=== PATIENT | male | born 1935 | race Caucasian/White ===

== ENCOUNTER 2018-12-13 15:45 | Inpatient (IN) | payer OTHER ==
[~2018-12-13] VITALS: Ht 172.7 cm; Wt 88.0 kg
[2018-12-13 15:50] VITALS: Ht 172.7 cm; Wt 88.0 kg
--- NOTE | 2018-12-13 16:36 | NUR ---
SON BRINGS IN FATHER VIA W/C FOR GENERALIZED WEAKNESS FOR TWO DAYS, DECREASED APPETITE AND UNABLE TO EAT OR DRINK BECAUSE HE HICCUPS AFTERWARDS. PT AAOX3, IN NAD, OTHER THAN FEELING "WEAK" RESP EVEN AND UNLABORED,ON RA@98%, DENIES CP, ONLY MILD SOB WITH MILD EXERTION. STATES HE STARTED STEROIDS GIVEN TO HIM AT [facility] 6 DAYS AGO. STATES AFTER TAKING THAT MEDICATION, HE STARTED FEELING WEAK. ABD LARGE, NON DISTENDED, DENIES ANY N/V/D. NO FEVERS OR CHILLS, DENIES DYSURIA. SKIN W/D/I, HEPLOCK TO RT AC #20, WAIITNG FOR ER MD GARCIA.
[2018-12-13 16:56] LABS: PLATELET COUNT 198 x10^3mcL (130-400); RED CELL DISTRIBUTION WIDTH 14.4 % (11.5-14.5)
[2018-12-13 17:08] LABS: SEGMENTED NEUTROPHILS 95 % (37-75)
[2018-12-13 17:09] LABS: BAND NEUTROPHIL 1 % (0-10); BASOPHIL 0 % (0-2)
[2018-12-13 17:10] LABS: rbc morphology (normal/abnorm) NORMAL (NORMAL)
[2018-12-13 17:12] LABS: ALBUMIN 3.5 g/dL (3.4-5.0); ALKALINE PHOSPHATASE 70 U/L (46-116); ALT/SGPT 38 U/L (16-63); AST/SGOT 22 U/L (15-37); BILIRUBIN TOTAL 2.35 mg/dL (0.20-1.00); CALCIUM 9.7 mg/dL (8.5-10.1); CARBON DIOXIDE 16.6 mmol/L (21-32); CHLORIDE SERUM 90 mmol/L (98-107); CREATININE SERUM 3.4 mg/dL (0.7-1.3); SODIUM SERUM 125 mmol/L (136-145)
[2018-12-13 17:16] LABS: T3 TOTAL 0.7 ng/mL
[2018-12-13 17:28] LABS: FREE T4 1.33 ng/dL (0.76-1.46); FREE THYROXINE INDEX 2.4 ug/dL (1.4-4.5); T4(THYROXINE) 6.3 ug/dL (4.7-13.3)
--- NOTE | 2018-12-13 17:55 | NUR ---
PT WITH EYES CLOSED AT THIS TIME, IN NAD. SON AT BEDSIDE. AWAIITNG FURTHER DISPO. VSS, BLOOD CULTURES RECENTLY TAKEN, WBC HIGH. PT INFORMED WE STILL NEED URINE COLLECTION.
--- NOTE | 2018-12-13 18:31 | NUR ---
URINE COLLECTED AND DIP DONE.
--- NOTE | 2018-12-13 18:55 | NUR ---
PT BACK FROM CT SCAN, NO CHANGE IN CONDITION. VSS, ON RA@96%, ATRIL FLUTTER ON MONITOR, DR VELAZQUEZ AWARE. NO FURTEHR ORDERS PENDING.
[2018-12-13 19:20] LABS: POTASSIUM SERUM 6.6 mmol/L (3.5-5.1)
[2018-12-13 19:21] LABS: GLUCOSE SERUM 628 mg/dL (74-106)
--- NOTE | 2018-12-13 19:39 | NUR ---
PER MD SING DO NOT GIVE CALCIUM CHLORIDE BECAUSE PT MAY BE IN DKA. WAITING NEW UPDATED ORDERS FOR EMAR
--- NOTE | 2018-12-13 19:50 | NUR ---
PT BIB DAUGHTER FOR C/O GENERALIZED WEAKNESS. PT IS AXO X4. PT SPEAKING IN CLEAR AND FULL SENTENCES. PT HAS DRY SKIN, BUT INTACT. PT IS TACHYCARDIC ON THE MONITOR IN . MD KAREY BRAR. PT HAS HX OF GOUT, HTN, AND UNKNOWN "IRREGULAR HEART BEAT" THAT HE STATES IS THE REASON HE TAKES DIGOXIN AND XARELTO. PT ALSO HAVING SEGMENTS OF AFIB WHEN HR SLOWS DOWN. PT DENIES ANY PAIN AT THIS TIME. PT COOPERATIVE. PT STATES THAT HE RECENTLY STARTED TAKING A STEROID 5 DAYS AGO FOR AN UNKNOWN INFECTION. PT HAS NO HX OF DIABETES. PT STATES THAT SINCE HE STARTED TAKING THE STEROID HE STARTS TO HICCUP AFTER HE EATS. NAD AT THIS TIME. FAMILY AT BEDSIDE. LUNG SOUNDS CLEAR. PT CONNECTED TO FULL CM.
--- NOTE | 2018-12-13 19:59 | NUR ---
PER MD EDEN. DUE TO DECREASING BP HE STATES VERBAL ORDERS TO RUN THE REST OF THE MAINTENANCE FLUID A BOLUS WIDE OPEN.
--- NOTE | 2018-12-13 20:00 | NUR ---
MD EDEN MADE AWARE OF PT HR OF ABOVE 140. MD EDEN STATES GIVE THE BOLUS AND UPDATE HIM ON PT BP AND HR AFTER BOLUS FOR POTENTIAL DOSE OF CARDIZEM
[2018-12-13] MEDS ORDERED: MYLIIL PO (20:21)
[2018-12-13] MEDS ORDERED: MELOXICAM15 M1 PO (20:22)
[2018-12-13] MEDS ORDERED: TAMSULOSIN HCL0.4 MG PO (20:22)
[2018-12-13] MEDS ORDERED: XARELTO10 M1 PO (20:23)
[2018-12-13] MEDS ORDERED: DIG125 PO (20:24)
[2018-12-13] MEDS ORDERED: ALLOPURINOL100 MG PO (20:24)
[2018-12-13] MEDS ORDERED: HCTZ/LISINOPRIL1 TA1 PO (20:24)
[2018-12-13] MEDS ORDERED: PREDNISOLONE SO10 MG PO (20:25)
--- NOTE | 2018-12-13 20:37 | NUR ---
JOSE A SANDS AT BEDSIDE FOR REPEAT EKG PER DR EDEN.
--- NOTE | 2018-12-13 21:20 | NUR ---
SPOKE WITH AFTER HOURS PHARMACIST AND HE STATES THEY WILL BRING OVER VANCOMYCIN BECAUSE WE DO NOT HAVE ANY IN THE [facility]
--- NOTE | 2018-12-13 22:00 | NUR ---
REPORT GIVEN TO KENYON JAMES
--- NOTE | 2018-12-13 22:02 | NUR ---
KENYON JAMES UPDATED THAT PT LAST BLOOD GLUCOSE WAS 501 AND LACTIC ACID WENT UP TO 6.7 THAT HE NEEDS TREATMETN FOR WELL HIS HR HAS DECREASED AND IS STILL TACHYCARDIC HOWEVER IT IS NOW AFIB. PT TRANSFERRED TO ICU BED 5. KENYON JAMES THERE TO RESUME CARE OF PT. FAMILY WENT WITH PT. NAD UPON TRANSFER TO ICU.
[2018-12-13 22:15] LABS: microscopic required? YES; urine erythrocyte TRACE (NEGATIVE)
--- NOTE | 2018-12-13 22:20 | NUR ---
RECEIVED CALL FROM DR. MEHTA FOR PATIENT'S STATUS. ALL QUESTIONS AND CONCERNS ANSWERED. DR ORDERED 5 UNITS IV PUSH FOR HIGH BS AND HIGH POTASSIUM, WELL A STAT CHEM 7. WILL PUT IN ORDERS AND CARRY OUT.
--- NOTE | 2018-12-13 22:45 | NUR ---
RECEIVED CALL FROM DR. COOPER FOR PATIENT STATUS. ALL QUESTIONS AND CONCERNS ANSWERED. ORDERED NS TO BE CHANGED FROM 250 TO 150 ML/HR, ZOSYNM 2.25 G Q8HRS, VANCO [facility]ARM[facility] DOSE, AND BMP AND LACTIC ACIC Q6HRS X4 DAYS. IN ADDITION, ORDERED Q6 HR BLOOD SUGAR CHECKS, AND SLIDING SCALE INSULIN. WILL PUT IN ORDERS, AND CARRY OUT.
--- NOTE | 2018-12-13 22:50 | NUR ---
RECEIVED PT FROM ER. PT CONNECTED TO PCTS. PT ALERT AND ORIENTED X4. PUPILS REACTIVE TO LIGHT. PT IS BREATHING E/U ON RA. LUNG SOUNDS CLEAR TO BILATERAL UPPER LOBES, DIMINSHED TO BILATERAL LOWER LOBES. S1 S2 HEART SOUNDS AUSCULTATED WITH SINUS TACHYCARDIA. PULSES MODERATE X4. CAP REFILL <3 SECONDS X34. SKIN IS WARM AND CONSISTENT WITH ETHNICITY. PERIPHERAL IV TO LEFT FA AND RIGHT AC PATENT, DRESSING CDI. NS INFUSING AT 250 ML/HR. NO EDEMA NOTED. ABD IS SOFT AND ROUNDED WITH ACTIVE BOWEL SOUNDS X4Q. GENERALIZED WEAKNESS. MENEZES DRAINING VIA GRAVITY, WITH FAIR OUPUT. WILL CONTINUE TO MONITOR.
[2018-12-13 23:49] LABS: CALCIUM 9.1 mg/dL (8.5-10.1); CARBON DIOXIDE 21.3 mmol/L (21-32); CHLORIDE SERUM 101 mmol/L (98-107); CREATININE SERUM 2.6 mg/dL (0.7-1.3); SODIUM SERUM 135 mmol/L (136-145)
[2018-12-13 23:52] LABS: GLUCOSE SERUM 556 mg/dL (74-106)
[2018-12-14] VITALS (7 sets, daily range): BP systolic 103–125; BP diastolic 57–75
--- NOTE | 2018-12-14 00:15 | NUR ---
CALLED DR VELÁSQUEZ FOR HR IN THE 200'S. DR ASKED IF PT WAS IN A FIB BUT APPEARS TO BE SINUS TACHY, WELL SHOWN ON EKG. ORDERED CARDIZEM 20 MG IVP Q2HRS PRN FOR HR > 140. ALSO ORDERED DIGOXIN 0.25 MG IVP X1. DIGOXIN PO DAILY 0.125 MG. AND XARALTO QHS 20 MG. WILL PUT IN ORDERS AND CARRY OUT.
[2018-12-14 03:47] LABS: PLATELET COUNT 179 x10^3mcL (130-400); RED CELL DISTRIBUTION WIDTH 14.2 % (11.5-14.5)
[2018-12-14 03:57] LABS: MONOCYTE 7 % (0-7); SEGMENTED NEUTROPHILS 88 % (37-75)
[2018-12-14 03:59] LABS: PLATELET MORPHOLOGY PLATELETS NORMAL; rbc morphology (normal/abnorm) NORMAL (NORMAL)
[2018-12-14 04:18] LABS: CHOLESTEROL/HDL RATIO 3.4
[2018-12-14 04:21] LABS: CALCIUM 9.6 mg/dL (8.5-10.1); CARBON DIOXIDE 22.6 mmol/L (21-32); CHLORIDE SERUM 109 mmol/L (98-107); CREATININE SERUM 2.5 mg/dL (0.7-1.3); GLUCOSE SERUM 128 mg/dL (74-106); MAGNESIUM 2.9 mg/dL (1.8-2.4); PHOSPHOROUS 3.5 mg/dL (2.5-4.9); POTASSIUM SERUM 4.8 mmol/L (3.5-5.1); SODIUM SERUM 144 mmol/L (136-145)
--- NOTE | 2018-12-14 05:28 | NUR ---
RIGHT ANTECUBITAL IV INFILTRATED, REMOVED.
--- NOTE | 2018-12-14 06:50 | NUR ---
TITRATED DOPAMINE FROM 20 MCG/KG/MIN TO 15 MCG/KG/MIN FOR BP WNL. AND HR WNL.
--- NOTE | 2018-12-14 07:15 | NUR ---
RECEIVED PT'S REPORT FROM LEAVING NURSE. PT IS AA/O X4. PT DENIED ANY CHEST PAIN, BUT WEAKNESS. PER PT'S REPORT HE IS ON STEROID MEDS FOR A WEEK, JUST STOPPED IT PER HIS DOCTOR. PT REPORTS PAST THREE DAYS, PT WAS HAVING HICUP AND UNABLE TO EAT NORMALLY AND FEELING SOB. PT BREATHING ON RA, EVEN, UNLABORED. IV SIDE PATENT INTACT. SODIUM BICARB IS INFUSING AT 150ML/HR. WILL CONTINUE TO MONITOR.
--- NOTE | 2018-12-14 07:56 | NUR ---
GOT PT'S CRITICAL LAB LAC ACID 2.1, TRENDING DOWN.
--- NOTE | 2018-12-14 10:17 | NUR ---
PROVIDED PT STATUS TO DR. GORDON, PT'S LABS AND VITAL SIGN. PER DR. GORDON PT IS STABLE, MAKING GOOD URINE AND LABS TRENDING DOWN, PT MAY BE TRANSFER TO [facility].
--- NOTE | 2018-12-14 10:47 | NUR ---
PROVIDED UPDATES T DR. PEREZ OVER PHONE, TROP AT AND VITALS. PER DR. PEREZ TO ORDER ECHO CONSULT WITH DR. FARIAS AND REPEAT TROP AT 1450. REPEATED ORDER BACK TO DR. PEREZ TO VERIFIED.
--- NOTE | 2018-12-14 12:13 | NUR ---
PT'S SON KEITH AT BEDSIDE.
[2018-12-14 12:30] LABS: CALCIUM 8.9 mg/dL (8.5-10.1); CARBON DIOXIDE 25.8 mmol/L (21-32); CHLORIDE SERUM 102 mmol/L (98-107); CREATININE SERUM 2.1 mg/dL (0.7-1.3); GLUCOSE SERUM 380 mg/dL (74-106); SODIUM SERUM 136 mmol/L (136-145)
--- NOTE | 2018-12-14 12:41 | NUR ---
ECHO AT BEDSIDE.
--- NOTE | 2018-12-14 13:22 | NUR ---
GOT PT'S LAB REPORT TROP 0.119, MADE DR. CAMPBELL AWARE.
--- NOTE | 2018-12-14 13:31 | NUR ---
PROVIDED UPDATES TO DR. PEREZ, ELEVATED TROP AND PT'S VITAL SIGNS. DR. PEREZ REVIEWED PT'S PMH AND PROVIDED DIABETE EDUATION, TO TAKE ORAL MEDICATIONS TO MANAGE DM. PT AND SON VERBALIZED UNDERSTANDING.
--- NOTE | 2018-12-14 13:56 | NUR ---
REPORT GIVEN TO MARCY JAMES. PT WILL BE TRANSFERRING TO ROOM 243B BY WHEEL CHAIR ON ROOM AIR.
--- NOTE | 2018-12-14 14:00 | NUR ---
EMPTIED 1000ML MENEZES CATH.
--- NOTE | 2018-12-14 14:18 | NUR ---
[facility] PT TO ROOM 243B WITH TELE MONITOR #8 BY WHEEL CHAIR ON ROOM AIR. PT HAS ALL PERSONAL BELONGINGS. V/S 109/67 MAP 84 HR 89 RR 18 97%PO2SAT ON ROOM AIR. PT DENIES ANY CHEST PAIN OR DISCOMFORT.
--- NOTE | 2018-12-14 15:06 | NUR ---
AT 1435 - RECEIVED PATIETN FROM ICU VIA WHEELCHAIR. SETTLED IN BED, ORIENTED TO SURROUNDINGS AND PLACED ON CARDIAC MONITORING TELE # 8. PATIENT IS AWAKE, ALERT AND ORIENTED. VS WNL. AFEBRILE. IV INFUSING D5 WITH 3 AMPS SODIUM BICARB AT 150 ML/HR. MENEZES CATHETER DRAINGIN YELLOW URINE. CALL LIGHT WITHIN REACH.
--- NOTE | 2018-12-14 17:30 | NUR ---
AT 1705 - PATIENT HAD SHORT EPISODE OF V-TACH ( 5 CONSECUTIVE PVCs ). PATIENT WAS TALKING WITH FAMILY AT THE TIME; RESTING IN BED. ASYMPTOMATIC. DENIES ANY CHEST PAIN. VS WNL AND STABEL. O2 SAT 96% ON ROOM AIR. TRENDING TROPONIN LEVELS. CONTINUING TO MONITOR.
--- NOTE | 2018-12-14 18:17 | NUR ---
CALLED TO [employer] AND [employer]YE STAND LOADER AND WAITING FOR HIS RETURN CALL.
--- NOTE | 2018-12-14 18:22 | NUR ---
CALLED BACK AND MADE AWARE THAT PATIENT RUNS OF 4 BEATS OF V-TACH AND PATIENT ASYMPTOMATIC,B/P-116/65-88-15 SAT.95% AT ROOM AIR. PATIENT DENIES ANY CHEST PAIN AND SOB AND WAITING FOR TO SEE THE PATIENT.
--- NOTE | 2018-12-14 18:26 | NUR ---
RESTING QUIETLY. MONITOR SHOWING A-FIB; RATE 112. NO C/O CHEST PAIN OR SOB. IV INFUSING D5 WITH 150 MEQ SODIUM BICARB AT 150 ML/ HR. THIS WILL BE FOLLOWED AT 2200 BY D5 WITH 100 MEQ SODIUM BICARB AT 150 ML/HR. FAMILY AT BEDSIDE. SPOKE WITH PATIENT AND FAMILY ABOUT CURRENT PLAN OF CARE. VSS. PATIENT HAS EATEN DINNER. LAST BLOOD GLUCOSE WAS 310 AND COVERED WITH REGULAR INSULIN PER SLIDING SCALE. GOOD URINE OUTPUT VIA MENEZES CATHETER. WILL ENDORSE CARE TO NIGHT NURSE.
--- NOTE | 2018-12-14 19:36 | NUR ---
SEEN BY DR FARIAS. NEW ORDERS RECEIVED. MADE AWARE OF RHYTHM CHANGES.
--- NOTE | 2018-12-14 19:51 | NUR ---
PT RECIEVED FROM DAY NURSE. PT RESTING IN BED. DENIES PAIN OR DISCOMFORT AT THIS TIME. DENIES SOB, N/V, DIZZINESS, OR PALPATATIONS. BREATHING EVEN AND UNLABORED ON RA. TELE #8, AFIB. LUNG SOUNDS CTA. BOWEL SOUNDS ACTIVE X4. MENEZES DRAINING TO GRAVITY. GENERALIZED WEAKNESS,PT STATES HE IS AMBULATORY AT HOME WITH NO ASSITANCE NEEDED. IV TO LFA C/D/I AND INFUSING. BED AT LOWEST POSITION, CALL LIGHT WITHIN REACH, WILL CONTINUE TO MONITOR.
--- NOTE | 2018-12-14 23:58 | NUR ---
I HAVE REVIEWED THE DATA COLLECTION BY RN: ANNIA BHAKTA ENTERED ON 12/14/18 I CONCUR WITH THE DATA AND ANY EXCEPTIONS OR COMMENTS ARE LISTED BELOW:
[2018-12-15] VITALS (8 sets, daily range): BP systolic 81–99; BP diastolic 44–57
[2018-12-15 00:28] LABS: CARBON DIOXIDE 32.4 mmol/L (21-32); CHLORIDE SERUM 102 mmol/L (98-107); CREATININE SERUM 2.1 mg/dL (0.7-1.3); GLUCOSE SERUM 291 mg/dL (74-106); POTASSIUM SERUM 4.4 mmol/L (3.5-5.1); SODIUM SERUM 137 mmol/L (136-145)
--- NOTE | 2018-12-15 02:41 | NUR ---
PT RESTING IN BED COMFORTABLY WITH EYES CLOSED. NO S/S OF PAIN OR DISCOMFORT AT THIS TIME. BREATHING EVEN AND UNLABORED. TELE #8, NSR WITH PVCS. BED AT LOWEST POSITION. CALL LIGHT WITHIN REACH. WILL CONTINUE TO MONITOR.
--- NOTE | 2018-12-15 05:20 | NUR ---
PT RESTING IN BED WITH EYES CLOSED. NO S/S OF PAIN OR DISCOMFORT AT THIS TIME. BREATHING EVEN AND UNLABORED. MENEZES DRAINING TO GRAVITY, YELLOW COLORED URINE. LFA IV CDI AND INFUSING. BED AT LOWEST POSITION. CALL LIGHT WITHIN REACH. WILL ENDORSE TO DAY NURSE.
--- NOTE | 2018-12-15 06:34 | NUR ---
MENEZES CARE PROVIDED. 150 CC EMPTIED FROM MENEZES. WILL ENDORSE TO DAY NURSE
[2018-12-15 07:01] LABS: BASOPHIL % 0.1 % (0-2); PLATELET COUNT 154 x10^3mcL (130-400); RED CELL DISTRIBUTION WIDTH 14.3 % (11.5-14.5)
--- NOTE | 2018-12-15 07:05 | NUR ---
RECEIVED PT FROM SHRUTHI RN, PT RESTING IN BED WITH BOTH EYES CLOSED. NO S/S OF ACUTE DISTRESS. NSR ON TELE 8, HR 89. NO SOB ON ROOM AIR. ASPIRATION PRECAUTIONS IN PLACE. MENEZES IN TACT. FALL PRECAUTIONS IN PLACE. IV WNL TO LFA/RAC, NO REDNESS, NO SWELLING, NO INFILTRATION. PATENT AND FLUSH WELL. BED IN LOW POSITION. CALL LIGHT WITHIN REACH. SIDE RAILS UP X2. WILL CONTINUE TO MONITOR.
[2018-12-15 07:22] LABS: CALCIUM 8.5 mg/dL (8.5-10.1); CARBON DIOXIDE 31.2 mmol/L (21-32); CHLORIDE SERUM 101 mmol/L (98-107); CREATININE SERUM 1.9 mg/dL (0.7-1.3); GLUCOSE SERUM 273 mg/dL (74-106); SODIUM SERUM 138 mmol/L (136-145)
--- NOTE | 2018-12-15 10:10 | NUR ---
PT FOUND RESTING IN BED WITH BOTH EYES CLOSED. NO S/S OF ACUTE DISTRESS. NO SOB ON ROOM AIR. DENIES PAIN. REPOSITIONS INDEPENDENTLY. NO CHEST PAIN. CALM/COOPERATIVE. BED IN LOW POSITION. CALL LIGHT WITHIN REACH. FALL PRECAUTIONS IN PLACE. BED ALARM ON. WILL CONTINUE TO MONITOR.
--- NOTE | 2018-12-15 13:00 | NUR ---
ASSISTED PT TO RESTROOM, GAIT STEADY/SLOW. PT HAS SOB WITH EXERTION. HR ELEVATED WHILE USING RESTROOM, 130S-140S. HR DECREASED WHILE LAYING IN BED. HR CURRENTLY 119. TRENDING DOWN. DENIES CHEST PAIN. DR. ANA BRAR. TALKED TO PT AND PT SON KEITH AT BEDSIDE. PT AA/OX4 SITTING UP IN BED EATING LUNCH. NO S/S OF ACUTE DISTRESS. NO COMPLAINT OF PAIN. COMPLAINT OF DIZZINESS WHILE AMBULATING TO RESTROOM. FALL PRECAUTIONS IN PLACE. INSTRUCTED TO USE CALL LIGHT TO CALL FOR ASSISTANCE BEFORE AMBULATING. VERBALIZED UNDERSTANDING. BEDSIDE COMMODE PLACED AT BEDSIDE. BED IN LOW POSITION. CALL LIGHT WITHIN REACH. SON AT BEDSIDE. WILL CONTINUE TO MONITOR.
--- NOTE | 2018-12-15 14:16 | NUR ---
1. Recommend continuing Renal (CCHO, cardiac) diet as tolerated. 2. Diabetes Diet education provided.
--- NOTE | 2018-12-15 14:16 | NUR ---
Initial Nutrition Assessment: 243T/B LADAN TA IA HR Dx: severe sepsis, new onset DM PMHx: HTN, Gout, Chronic AFib, on digoxin and Xarelto, BPH PSHx: none Labs: BG 273H, BUN 50H, CREAT 1.9H, A1C 8.7H Meds: Colace, D 50%, Glucotrol, humulin, xarelto, zosyn Diet: Renal (CCHO, cardiac) PO Intake: (12/14) dinner 75% Ht: 172.72 cm (68") Wt: 87.9 kg (193#) BMI: 29.5 kg/m2 (overweight) Bed scale: 91.6 kg IBW: 154# (70 kg) %IBW: 123 UBW: 211# Age: 83/M Food Allergies: NKFA Skin: intact Mark: 19 Edema: none GI: Last BM: 12/15 Per H&P, Pt is a 83-year-old male with multiple medical problems including hypertension, chronic AFib on digoxin and Xarelto, BPH, gout, who was brought in by family because of generalized weakness over the past 2 days with decreased p.o. intake. RDN Visit (12/15): Patient was sleeping during RD visit in the morning. I went again in the afternoon and spoke with the patient. FNS received "Diabetes education" consult on 12/15/18. Patient said that his appetite is fair and he ate some of his lunch today. Problem with: N/V/D/C: no Problems with: Chewing/Swallowing: none Current appetite: fair Recent wt change: 9# x 1 month %wt change: 4% x 1 month (significant) Vitamin/Supplement use: vitamin D Special diet at home: Regular Physical activity: walking Nutrition education given: Diabetes diet education was provided using [facility] handout on 'Type 2 Diabetes Nutrition Therapy'. Concepts like high fiber diet, label reading, types of carbohydrates and portion control were discussed. Patient verbalized understanding and did not have any questions at this time. Food-drug interactions: Colace- high fiber w/7111-5931 ml fluids Education given: yes Estimated Nutritional Needs Based on ideal body weight 70 kg Energy: 2648-8952 kcal/d (25-30 kcal/kg) Protein: 70-84 g/d (1.0-1.2 g/kg) - sepsis Fluid: 2703-5532 ml/d (1 ml/kcal) or per doctor Nutrition Diagnosis 1. 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 2. Unintentional weight loss related to medical condition as evidenced by self- reported weight loss of 9# x 1 month. Intervention 1. Recommend continuing Renal (CCHO, cardiac) diet as tolerated. 2. Diabetes Diet education provided. Monitor/Evaluate Goal: PO intake at least 75% of estimated needs Monitor: PO intake, Labs, GI function F/U in 3-5 days as moderate risk 12/18-
--- NOTE | 2018-12-15 14:52 | NUR ---
PATIENT IS LYING IN BED, DROWSY BUT AROUSABLE, ABLE TO FOLLOW COMMENDS AND ANSWER QUESTIONS. DENIES BARON/DIZZINESS OR ANY DISCOMFORT. RESP. EVEN , TELE SHOWS AFIB AT 74 BPM. V/S: 85/42, MAP.54, RR=20, O2.SAT 94% ON RA. CALLED AND REPORTED THIS CONDITION TO DR. MARTINS. WILL ADMINISTER 0.9% NS 500 ML BOLUS AND GIVE MIDODRINE ORDERED.
--- NOTE | 2018-12-15 14:57 | NUR ---
LATE ENTRY: OCCURED AT 1445 BP LOW 85/42, PT DENIES DIZZINESS, NO CHEST PAIN. PT APPEARS COMFORTABLE AT THIS TIME RESTING BED. EASILY AROUSABLE TO TACTILE STIMULI. SPEECH CLEAR. VP MEDICAL JANE AWARE. DR. PEREZ AWARE OF BP. AWAITING FURTHER ORDERS. WILL CONTINUE TO MONITOR CLOSELY.
--- NOTE | 2018-12-15 15:31 | NUR ---
PT WAS SEEN FOR DYSPHAGIA. PT WAS ABLE TO SAFELY SWALLOW MS DIET WITH CHOPPED MEAT AND VEG WITH THIN LIQUID. MILD DIFFICULTY WITH MASTICATICATION SKILLS FOR REGULAR DIET. RECOMMENDATION MS DIET WITH CHOPPED MEAT WITH VEG WITH THIN LIQUID SMALL BITES AND SIPS ONLY.
--- NOTE | 2018-12-15 16:35 | NUR ---
SMALL BOWEL FOLLOW THROUGH STARTED AT THIS TIME. PT NPO. WILL CONTINUE TO MONITOR.
--- NOTE | 2018-12-15 18:10 | NUR ---
PT LAYING IN BED. AA/OX4. NO S/S OF ACUTE DISTRESS. NO COMPLAINT OF PAIN AT THIS TIME. NO SOB ON ROOM AIR. NO N/V. REPORTS MILD CONTINUOUS ABDOMINAL PAIN, REPORTS TOLERABLE AT THIS TIME. NO BM TODAY. REPORTS PASSING GAS ORALLY/RECTALLY. VISITOR AT BEDSIDE. IV WNL TO LFA, NO REDNESS, NO SWELLING, NO INFILTRATION. PATENT AND FLUSHES WELL. BED IN LOW POSITION. CALL LIGHT WITHIN REACH. WILL ENDORSE TO ONCOMING SHIFT.
--- NOTE | 2018-12-15 18:41 | NUR ---
PT AA/OX4. NO S/S OF ACUTE DISTRESS. AMBULATORY TO BEDSIDE COMMODE. TOLERATED ACTIVITY WELL. NO COMPLAINT OF PAIN. NO SOB ON ROOM AIR. NO CHEST PAIN. IV LEAKING TO LFA, IV REMOVED, CATHETER IN TACT. PRESSURE APPLIED. SITE WNL. IV WNL TO RAC, IV FLUIDS FLOWING. LINEN CHANGED. NO N/V. MENEZES IN TACT DRAINING CLEAR YELLOW URINE, OUTPUT 550 TODAY. BED IN LOW POSITION. CALL LIGHT WITHIN REACH. WILL ENDORSE TO ONCOMING SHIFT.
--- NOTE | 2018-12-15 20:00 | NUR ---
RECEIVED PT IN BED, RESTING QUIETLY. A/O . ABLE TO VERBALIZE NEEDS. DENIES HEADACHE/DIZZINESS. RESP. EVEN AND UNLABORED. LUNG SOUNDS CLEAR BILAT. ON ROOM AIR, NO ACUTE DISTRESS NOTED.SR/AFIB WITH OCCA. PVCS, ON THE MONITOR. DENIES CP OR ANY DISCOMFORT AT THIS TIME.IVF, NS AT 100ML/HR, INTACT AND INFUSING VIA RAC, SITE CLEAR. MENEZES CATH INTACT AND DRAINING YELLOW COLOR URINE. ON FALL PREC. INSTRUCTED TO CALL FOR ASSIST. IF NEEDED, PT VERBALIZED UNDERSTANDING. CALL LIGHT WITHIN REACH. WILL CONTINUE TO MONITOR.
--- NOTE | 2018-12-16 00:05 | NUR ---
NEW IV SITE RESTARTED ON LFA WITH #22G ANGIO. IVF RECONNECTED. WILL CONTINUE TO MONITOR.
--- NOTE | 2018-12-16 01:58 | NUR ---
NO COMPLAINTS NOTED AT THIS TIME. RESTING QUIETLY ON BED, WITH EYES CLOSED, APPEARS ASLEEP, EASILY AROUSABLE. RESP. EVEN AND UNLABORED. NO ACUTE DISTRESS NOTED. IVF INTACT AND INFUSING WELL, SITE CLEAR. CALL LIGHT WITHIN REACH. WILL CONTINUE TO MONITOR.
[2018-12-16 05:32] VITALS: BP 105/56
--- NOTE | 2018-12-16 06:20 | NUR ---
SLEPT WELL, NO COMPLAINTS NOTED . SR ON THE MONITOR, DENIES CP OR ANY DISCOMFORT. AFEBRILE AND VITAL SIGNS STABLE.RESP. EVEN AND UNLABORED. ON ROOM AIR, NO ACUTE DISTRESS NOTED. DUE MEDS GIVEN ORDERED, MU. WELL. MENEZES CATH INTACT AND PATENT. NO BM NOTED DURING THE NIGHT. IVF INTACT AND INFUSING WELL, SITE CLEAR. KEPT COMFORTABLE.WILL CONTINUE TO MONITOR.
[2018-12-16 06:29] LABS: PLATELET COUNT 140 x10^3mcL (130-400)
[2018-12-16 06:52] LABS: CARBON DIOXIDE 29.7 mmol/L (21-32); CHLORIDE SERUM 102 mmol/L (98-107); CREATININE SERUM 2.1 mg/dL (0.7-1.3); GLUCOSE SERUM 168 mg/dL (74-106); MAGNESIUM 2.3 mg/dL (1.8-2.4); PHOSPHOROUS 2.3 mg/dL (2.5-4.9); POTASSIUM SERUM 4.8 mmol/L (3.5-5.1); SODIUM SERUM 138 mmol/L (136-145)
--- NOTE | 2018-12-16 07:05 | NUR ---
RECEIVED PT FROM NIGHT NURSE. PT IS LAYING DOWN IN BED WITH HOB UP AND EYES CLOSED RESTING. PT LOOKS TO BE IN NO ACUTE DISTRESS AT THIS TIME. RESPIRATIONS EVEN AND UNLABORED ON ROOM AIR. TELE MONITOR PRESENT. IV SITE PATENT WITH NO SIGNS OF ERYTHEMA OR SWELLING WITH IV FLUIDS INFUSING. BED IN LOWEST POSITION, CALL LIGHT WITHIN REACH. WILL CONTINUE TO MONITOR.
[2018-12-16 09:30] VITALS: BP 108/53
[2018-12-16 12:04] LABS: BAND NEUTROPHIL 0 % (0-10); BASOPHIL 0 % (0-2); MONOCYTE 4 % (0-7); PLATELET MORPHOLOGY PLATELETS DECREASED; SEGMENTED NEUTROPHILS 94 % (37-75)
[2018-12-16 12:05] LABS: rbc morphology (normal/abnorm) ABNORMAL (NORMAL)
[2018-12-16 12:17] VITALS: BP 105/59
[2018-12-16] MEDS ORDERED: GLU5 PO (14:00)
[2018-12-16] MEDS ORDERED: METOPROLOL SUCC25 M2 PO (14:00)
[2018-12-16 14:12] VITALS: BP 105/59
--- NOTE | 2018-12-16 15:15 | NUR ---
FAMILY MEMBER REQUESTING THAT PT WALK AROUND OUTSIDE ROOM WITH PHYSICAL THERAPY TO ENSURE THE PT WILL BE ABLE TO AMBULATE WHEN DISCHARGED. CONTACTED PHYSICAL THERAPY WHO WILL WORK WITH PT TO AMBULATE.
--- NOTE | 2018-12-16 15:32 | NUR ---
DISCONTINUED URINARY CATHETER ORDRED. PT TOLERATED WELL. INFORMED PT TO NOTIFY NURSE WHEN HAS URINATED. PT VERBALIZED UNDERSTANDING.
[2018-12-16 16:25] VITALS: BP 111/63
--- NOTE | 2018-12-16 16:49 | NUR ---
PT IS LAYING DOWN IN BED WITH HOB UP WATCHING TV. PT LOOKS TO BE IN NO ACUTE DISTRESS AT THIS TIME AND DENIES ANY PAIN. IV SITE PATENT WITH NO SIGNS OF ERYTHEMA OR SWELLING WITH IV FLUIDS INFUSING. FAMILY MEMBERS AT BEDSIDE. PT'S SON WILL RETURN TO PIPE INSULATOR HELPER PT FOR DISCHARGE AT 1800, PT REQUESTING TO HAVE DISCHARGE INFORMATION GIVEN TO HIM WHEN SON RETURNS. PT WILL NOTIFY WHEN SON RETURNS.
--- NOTE | 2018-12-16 18:55 | NUR ---
PT AWAKE, ALERT AND ORIENTED AT TIME OF DISCHARGE. PT LOOKS TO BE IN NO ACUTE DISTRESS AND DENIES ANY PAIN AT THE TIME OF DISCHARGE. PT DISCHARGED HOME AND WENT TO THE LOBBY VIA WHEELCHAIR ACCOMPANIED BY NURSE AND FAMILY MEMBER WITH GET IN HAND. EDUCATION AND PRESCRIPTIONS PROVIDED TO PT AND FAMILY MEMBER AND PT AND FAMILY MEMBER VERBALIZED UNDERSTANDING OF EDCUATION AND PRESCIPRTIONS. INFORMED PT AND FAMILY MEMBER OF THE FOLLOW UP APPOINTMENT AND THE IMPORTANCE OF THE FOLLOW UP APPOINTMENT. PT AND FAMILY MEMBER VERBALIZED UNDERSTANDING OF INFORMATION. TELE MONITOR REMOVED AND RETURNED TO TELE STATION. IV TO RAC AND LEFT FOREARM REMOVED AND CATHETER FULLY INTACT. ADDRESSED ALL QUESTIONS AND CONCERNS.
== END 2018-12-16 19:00 | disposition home health service (06) | DRG 682 ==
LOC: ED 15:45 → DU 21:13 → IC 21:13 → DU 12-14 14:37
PROVIDERS: Emergency Medicine; Internal Medicine Nephrology; ADMIT Internal Medicine Pulmonary Disease
DX: N17.9 Acute kidney failure, unspecified (principal); I21.A1 Myocardial infarction type 2; I47.2 Ventricular tachycardia; I48.92 Unspecified atrial flutter; E87.1 Hypo-osmolality and hyponatremia; E11.65 Type 2 diabetes mellitus with hyperglycemia; E86.0 Dehydration; I10 Essential (primary) hypertension; E87.5 Hyperkalemia; J84.10 Pulmonary fibrosis, unspecified; I48.2 Chronic atrial fibrillation; N40.0 Benign prostatic hyperplasia without lower urinary tract symptoms; M10.9 Gout, unspecified; Z79.4 Long term (current) use of insulin; Z68.30 Body mass index [BMI] 30.0-30.9, adult; Z87.891 Personal history of nicotine dependence; Z79.01 Long term (current) use of anticoagulants; Z85.51 Personal history of malignant neoplasm of bladder
CPT/HCPCS: 36600; 82962; 83880; 84439; 92526-GN; 92610-GN; 97530-GP; G0378; J0696; J1815; J2405; J2543; J3370; J3490; J7030; P9045; Q0092

== ENCOUNTER 2019-12-17 02:30 | Emergency (ER) | payer OTHER ==
[~2019-12-17] VITALS: Ht 175.3 cm; Wt 84.8 kg
[~2019-12-17 02:30] MED LIST: ALLOPURINOL100 MG PO; DIG125 PO; GLU5 PO; HCTZ/LISINOPRIL1 TA1 PO; MELOXICAM15 M1 PO; METOPROLOL SUCC25 M2 PO; MYLIIL PO; PREDNISOLONE SO10 MG PO; TAMSULOSIN HCL0.4 MG PO; XARELTO10 M1 PO
[2019-12-17 02:34] VITALS: Ht 175.3 cm; Wt 84.8 kg
[2019-12-17 04:13] VITALS: BP 139/65
== END 2019-12-17 04:13 | disposition home or self-care (01) ==
LOC: ED 02:30
DX: R04.0 Epistaxis (principal)